=== PATIENT | female | born 2000 | race Two or more races ===

== ENCOUNTER 2020-09-06 15:44 | Emergency (ER) | payer MEDICAID ==
[~2020-09-06] VITALS: Ht 162.6 cm; Wt 62.1 kg
--- NOTE | 2020-09-06 16:00 | NUR ---
Patient came in to the er c/o cough x 6 months, sob, low o2 sat noted last night. 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 On room air, breathing evenly and unlabored. Connected to the monitor and pulse ox. Kept comfortable, will continue to montior accordingly.
[2020-09-06] MEDS ORDERED: IPRATROPIUM NEB FS 0.5 MG/2.5 ML AMPUL.NEB ONE (16:17)
[2020-09-06] MEDS ORDERED: ALBUTEROL FS 2.5 MG/3 ML VIAL.NEB ONE (16:17)
--- NOTE | 2020-09-06 16:25 | NUR ---
RT at bedside for breathing Tx.
[2020-09-06] MEDS ORDERED: IPRATROPIUM NEB FS 0.5 MG/2.5 ML AMPUL.NEB NEB ONE (16:30)
[2020-09-06] MEDS ORDERED: ALBUTEROL FS 2.5 MG/3 ML VIAL.NEB NEB ONE (16:30)
[2020-09-06] MEDS ORDERED: FLUT9.9S NS (16:45)
[2020-09-06] MEDS ORDERED: ALBU8.5H8 INH (16:46)
[2020-09-06 17:54] VITALS: BP 118/77
--- NOTE | 2020-09-06 17:55 | NUR ---
Patient discharged to home in stable condition. Written and verbal after care instructions given. Patient verbalizes understanding of instruction.
== END 2020-09-06 17:55 | disposition home or self-care (01) ==
LOC: ER 15:47
DX: R09.82 Postnasal drip (principal); R05 Cough; Z79.899 Other long term (current) drug therapy
CPT/HCPCS: 71045-TC